=== PATIENT | male | born 1980 | race Caucasian/White ===

== ENCOUNTER 2017-09-10 10:55 | Emergency (ER) | payer SELFPAY ==
--- NOTE | 2017-09-10 11:05 | NUR ---
Pt stated he no longer wants to be seen in the ER, will follow up with his pmd.
== END 2017-09-10 11:14 | disposition left against medical advice (07) ==
LOC: ER 10:55
DX: Z53.21 Procedure and treatment not carried out due to patient leaving prior to being seen by health care provider (principal)